=== PATIENT | female | born 1970 | race African-American/Black ===

== ENCOUNTER 2016-09-04 21:19 | Emergency (ER) | payer SELFPAY ==
[2016-09-04 21:44] LABS: BASOPHILS 1.9 %; BASOPHILS ABSOLUTE 0.06 10/3/uL (0.0-0.16); EOSINOPHILS 0.3 %; EOSINOPHILS ABSOLUTE 0.01 10/3/uL (0.0-0.53); HEMATOCRIT 30.7 % (36.0-48.0); HEMOGLOBIN 9.4 g/dL (12.0-16.0); LYMPHOCYTES 25.6 %; MEAN CORPUS HGB CONC 30.6 g/dL (32.0-36.0); MEAN CORPUSCULAR HEMOGLOB 21.8 pg (26.0-34.0); MEAN CORPUSCULAR VOLUME 71.2 fL (80-100); MEAN PLATELET VOLUME 8.5 fL (9.2-13.0); MONOCYTES 18.6 %; MONOCYTES ABSOLUTE 0.58 10/3/uL (0.21-1.20); NEUTROPHILS 53.6 %; NEUTROPHILS ABSOLUTE 1.67 10/3/uL (2.02-8.40); PLATELET COUNT 288 10/3/uL (150-400); RED CELL COUNT 4.31 10/6/uL (4.0-5.6); WHITE BLOOD CELLS 3.1 10/3/uL (4.5-10.5)
[2016-09-04 21:45] LABS: MANUAL DIFF NO %
[2016-09-04 21:53] LABS: PARTIAL THROMBO TIME 26.3 SEC (22.5-37.2); PROTIME (NOT ORD) 13.4 SEC (12.0-14.5)
[2016-09-04 21:59] LABS: A/G RATIO 0.9 (0.7-1.9); ALKALINE PHOSPHATASE 117 U/L (45-117); BUN (BLOOD UREA NITROGEN) 8 MG/DL (6-23); CHLORIDE, SERUM 109 MMOL/L (96-112); CO2 (CARBON DIOXIDE) 23 MMOL/L (24-34); CREATININE 0.82 MG/DL (0.55-1.02); GFR AFRICAN AMERICAN 101 ML/MIN (>=60); GFR NON AFRICAN AMERICAN 87 ML/MIN (>=60); GLOBULIN 4.3 G/DL (2.5-4.1); GLUCOSE, SERUM 98 MG/DL (60-99); POTASSIUM, SERUM 3.7 MMOL/L (3.5-5.3); SGOT(AST) 49 U/L (5-40); SGPT(ALT) 42 U/L (5-65); SODIUM, SERUM 143 MMOL/L (135-148); TOTAL BILIRUBIN 0.3 MG/DL (0-1.2); TOTAL PROTEIN 8.3 G/DL (6.0-8.5)
== END 2016-09-04 22:00 | disposition left against medical advice (07) ==
LOC: ER 21:19
PROVIDERS: Specialist
DX: K62.5 Hemorrhage of anus and rectum (principal); Z53.21 Procedure and treatment not carried out due to patient leaving prior to being seen by health care provider
CPT/HCPCS: 36415; 80053; 85025; 85610; 85730; 86850; 86900; 86901; 93005

== ENCOUNTER 2017-02-25 14:32 | Emergency (ER) | payer BC | END 2017-02-25 15:43 | disposition home or self-care (01) | LOC: ER 14:32 | PROC: 2W2SX4Z Dressing of Right Foot using Bandage (ICD-10-PCS; principal; 2017-02-25) | DX: L08.9 Local infection of the skin and subcutaneous tissue, unspecified (principal); T25.021D Burn of unspecified degree of right foot, subsequent encounter; F17.200 Nicotine dependence, unspecified, uncomplicated; Z98.51 Tubal ligation status | CPT/HCPCS: 99283; A9270-GY ==